=== PATIENT | female | born 1990 | race Caucasian/White ===

== ENCOUNTER 2020-06-30 07:09 | Outpatient (CLI) | payer OTHER, SELFPAY ==
[2020-06-30 08:48] LABS: Basophils Percent Auto 0.3 % (0.2-1.2); Eosinophils Percent Auto 0.5 % (0-4.4); Hemoglobin 11.6 g/dL (12.0-15.0); Immature Granulocyte Absolute 0.05 K/mm3 (0.00-0.031); Immature Granulocyte Percent A 0.6 % (0-0.5); Lymphocytes Percent Auto 15.2 % (18.3-44.2); Mean Corpuscular HGB Conc 32.2 g/dl (32-36); Mean Platelet Volume 10.2 fl (7.4-10.4); Monocytes Absolute Auto 0.5 K/mm3 (0.1-0.6); Monocytes Percent Auto 6.9 % (2.6-8.5); Neutrophils Percent Auto 76.5 % (45.5-73.1); Platelet Count Result 179 k/mm3 (150-375); Red Cell Distribution Width 12.8 % (11.5-14.5); White Blood Count 7.9 K/mm3 (4.5-10.0)
[2020-06-30 09:00] LABS: Glucose 1 Hour PP 50gm Dose 149 mg/dL
[2020-06-30 09:42] LABS: HIV 1/2 Ab P24 Ag Result Negative (Negative)
[2020-07-02 11:56] LABS: Rapid Plasma Reagin Non-Reactive (NonReactive)
== END 2020-06-30 07:10 | disposition home or self-care (01) ==
PROVIDERS: Visit Provider Advanced Practice Midwife
DX: Z36.9 Encounter for antenatal screening, unspecified (principal)
CPT/HCPCS: 36415; 82947; 85025; 86592; 86703; 86850; G0432

== ENCOUNTER 2020-07-05 07:10 | Outpatient (CLI) | payer OTHER, SELFPAY ==
[2020-07-05 08:04] LABS: Glucose Fasting Gestational 89 mg/dL (>/=95)
[2020-07-05 09:56] LABS: Glucose 1 Hour Gest 202 mg/dL (>/=180)
[2020-07-05 10:37] LABS: Glucose 2 Hour Gest 95 mg/dL (>/= 155)
[2020-07-05 12:16] LABS: Glucose 3 Hour Gest 63 mg/dL (>/=140)
== END 2020-07-05 07:11 | disposition home or self-care (01) ==
PROVIDERS: Visit Provider Advanced Practice Midwife
DX: O99.810 Abnormal glucose complicating pregnancy (principal); Z3A.00 Weeks of gestation of pregnancy not specified
CPT/HCPCS: 36415; 82951; 82952

== ENCOUNTER 2020-08-17 14:01 | Outpatient (CLI) | payer OTHER, SELFPAY ==
--- NOTE | ~2020-08-17 | US_ITS ---
EXAMINATION: US OB follow up DATE: 08/17/2020 14:56 INDICATION: growth assessment during third trimester TECHNIQUE: Real-time ultrasound of the pelvis was performed. The interpreting radiologist was not pre sent for the study. COMPARISON: None. FINDINGS: There is a single living fetus in vertex presentation. The placenta is anterior. The positi on of the placenta relative to the cervix is not demonstrated. cardiac activity and movem ent are noted. heart rate is 135 beats per minute (bpm). The amniotic fluid index is subjective ly normal. The following biometric data were obtained: Biparietal diameter (BPD): 8.6 cm; head circumference (HC): 32.2 cm; abdominal circumference (AC): 31 .2 cm; femur length (FL): 6.8 cm. These measurements are concordant. Estimated weight is 2623 g +/- 393 g, which correlates with the 79th percentile when 09/28/2020 is used as estimated date of delivery. As single measurements, these parameters are each equal to the following estimated gestational ages w ith ranges of +/- 2 standard deviations: BPD: 35 weeks 0 days +/- 3 weeks 1 days. HC: 36 weeks 3 days +/- 2 weeks 5 days. AC: 35 weeks 1 days +/- 3 weeks 0 days. FL: 35 weeks 0 days +/- 3 weeks 0 days. estimated gestational age based solely on measurements from this exam is 35 weeks 3 days +/- 2 weeks 3 days. IMPRESSION: 1. Single living fetus in vertex presentation. 2. Estimated weight is 2623 g +/- 393 g, which correlates with the 79th percentile when 09/28/19 21 is used as estimated date of delivery. Reviewed, dictated and finalized at location A. COMMUNITY MANAGER IMPRESSION: 1. Single living fetus in vertex presentation. 2. Estimated weight is 2623 g +/- 393 g, which correlates with the 79th p ercentile when 09/28/2020 is used as estimated date of delivery.
== END 2020-08-17 14:02 | disposition home or self-care (01) ==
PROVIDERS: Visit Provider Obstetrics & Gynecology
DX: O99.213 Obesity complicating pregnancy, third trimester (principal); Z36.89 Encounter for other specified antenatal screening; Z3A.35 35 weeks gestation of pregnancy
CPT/HCPCS: 76816

== ENCOUNTER 2021-04-29 07:09 | Outpatient (CLI) | payer OTHER, SELFPAY ==
--- NOTE | ~2021-04-29 | US_ITS ---
EXAMINATION: US abdomen limited DATE: 04/29/2021 08:39 INDICATION: Right upper quadrant abdominal pain. TECHNIQUE: Multiple grayscale and Doppler ultrasound images of the abdomen were obtained. COMPARISON: None FINDINGS: The pancreatic head and body are normal in appearance. The pancreatic tail is not visualized. Liver has normal contour, with a smooth surface. There is increased parenchymal echogenicity and coarsened echotexture consistent with diffuse hepatic steatosis. No liver lesion identified. No intrahepatic b iliary duct dilation suspected. Portal venous flow was seen in the hepatopetal, normal direction and has normal Doppler waveform. Multiple shadowing gallstones layering in the dependent aspect of the ot herwise normal-appearing gallbladder. Common bile duct measures 6 mm in maximal diameter which is at the upper limits of normal. Sonographic Diane sign was reported as negative by the pantry worker.Visua lized portion of the right kidney demonstrates normal contour, echogenicity and no hydronephrosis. Vi sualized portion of the proximal inferior vena cava is normal. IMPRESSION: 1. Cholelithiasis with borderline dilated common bile duct but 2. Diffuse hepatic steatosis. With no evident intrahepatic biliary ductal dilation. Correlate with li therese function tests. Reviewed, dictated and finalized at location B. IMPRESSION: 1. Cholelithiasis with borderline dilated common bile duct but 2. Diffuse hepatic steatosis. With no evident intrahepatic biliary ductal dilat ion. Correlate with liver function tests.
[2021-04-29 07:44] LABS: Basophils Absolute Auto 0.1 K/mm3 (0.0-0.1); Basophils Percent Auto 0.8 % (0.2-1.2); Eosinophils Absolute Auto 0.1 K/mm3 (0-0.3); Eosinophils Percent Auto 1.4 % (0-4.4); Hematocrit 38.5 % (37.0-47.0); Hemoglobin 12.1 g/dL (12.0-15.0); Immature Granulocyte Absolute 0.01 K/mm3 (0.00-0.031); Immature Granulocyte Percent A 0.2 % (0-0.5); Lymphocytes Absolute Auto 1.91 K/mm3 (0.9-3.2); Lymphocytes Percent Auto 32.4 % (18.3-44.2); Mean Corpuscular HGB Conc 31.4 g/dl (32-36); Mean Corpuscular Hemoglobin 25.6 pg (26-34); Mean Corpuscular Volume 81.6 fl (80-100); Monocytes Absolute Auto 0.7 K/mm3 (0.1-0.6); Monocytes Percent Auto 11.2 % (2.6-8.5); Neutrophils Absolute Auto 3.2 K/mm3 (1.3-6.7); Platelet Count Result 256 k/mm3 (150-375); Red Blood Count 4.72 M/mm3 (4.2-5.4); Red Cell Distribution Width 13.7 % (11.5-14.5); White Blood Count 5.9 K/mm3 (4.5-10.0)
[2021-04-29 07:53] LABS: Alanine Aminotransferase 40 U/L (4-35); Albumin Level 4.3 g/dL (3.5-5.1); Alkaline Phosphatase 100 U/L (38-126); Anion Gap 6 mmol/L (8-16); Aspartate Amino Transferase 32 U/L (14-36); Bilirubin,Total 0.5 mg/dL (0.2-1.3); Blood Urea Nitrogen 13 mg/dL (7-17); Calcium 9.3 mg/dL (8.4-10.2); Carbon Dioxide 26 mmol/L (22-30); Chloride 108 mmol/L (98-107); Estimated Glomerular Filt Rate > 60; Glucose 95 mg/dL (65-110); Sodium 140 mmol/L (137-145)
[2021-04-29 08:03] LABS: Hemoglobin A1C 5.5 % (<5.7)
== END 2021-04-29 07:10 | disposition home or self-care (01) ==
PROVIDERS: PCP Family Medicine; Visit Provider Family Medicine
DX: R10.11 Right upper quadrant pain (principal); R10.13 Epigastric pain; Z13.1 Encounter for screening for diabetes mellitus; R63.5 Abnormal weight gain
CPT/HCPCS: 36415; 76705; 80053; 83036; 84443; 85025

== ENCOUNTER 2021-05-10 08:01 | Outpatient (CLI) | payer OTHER, SELFPAY ==
[2021-05-10 08:43] LABS: Alanine Aminotransferase 40 U/L (4-35); Albumin Level 4.1 g/dL (3.5-5.1); Alkaline Phosphatase 92 U/L (38-126); Amylase 71 U/L (30-110); Aspartate Amino Transferase 35 U/L (14-36); Bilirubin,Total 0.5 mg/dL (0.2-1.3); Lipase 60 U/L (23-300)
== END 2021-05-10 08:02 | disposition home or self-care (01) ==
LOC: ANHSURGERY 08:05
PROVIDERS: PCP Family Medicine; Visit Provider Surgery
DX: Z01.812 Encounter for preprocedural laboratory examination (principal); K80.20 Calculus of gallbladder without cholecystitis without obstruction
CPT/HCPCS: 36415; 80076; 82150; 83690; 86850; 86900; 86901

== ENCOUNTER 2021-05-16 02:01 | Day surgery (SDC) | payer OTHER, SELFPAY ==
[2021-05-09 12:35] VITALS: BMI 46.2
[2021-05-16] VITALS (11 sets, daily range): BP systolic 105–140; BP diastolic 64–82; PULSE 60–95; RESP 14–20; TEMP 36.4–36.5; O2SAT 94–100; BMI 49.4
--- NOTE | ~2021-05-16 | XR_ITS ---
EXAMINATION: XR cholangiogram surg 1st inj DATE: 05/16/2021 10:53 INDICATION: Intraoperative cholangiogram, right upper quadrant pain TECHNIQUE: 82 fluoroscopic images of the right upper quadrant were obtained during intraoperative cho langiography performed by the surgeon. I was not present in the operating room. Fluoroscopy exposure time was 14.1. COMPARISON: None. FINDINGS: There is no intrahepatic or extrahepatic biliary dilatation. No biliary stones or stricture are identified. IMPRESSION: 1. Unremarkable intraoperative cholangiogram. These findings were communicated to Dr. Hunter in the operating room at 1038 hours on 05/16/2021. Reviewed, dictated and finalized at location B.
[2021-05-16] MEDS: LACTATED RINGERS 1,000 ML 30 ML IV CONT ×2 (08:10→11:16)
--- NOTE | 2021-05-16 08:15 | WPDANESEPPF ---
Anes - Initial Pre Proc Eval Procedure: Operation Date: 05/16/21 09:30 Proposed Procedures p Laparoscopic Cholecystectomy With Intraoperative Cholangiograms, Possible Open - Derek Hunter DO Date/Time: 05/16/21 08:15 Surgeon: Deerk Hunter DO Pre Op Diagnosis: Symptomatic Cholelithiasis Patient Data Age: 31 Gender: F Height: 1.83 m Weight: 165.4 kg Allergies Allergy/AdvReac Type Severity Reaction Status Date / Time No Known Allergies Allergy Unknown Verified 05/16/21 07:53 Home Medications Medication Instructions Recorded Confirmed Type fluticasone propionate [Flonase 1 spray NASAL DAILY #15.8 ml 08/11/19 05/16/21 Rx Allergy Relief] bupropion HCl 150 mg 24 hr tablet, 150 mg PO QAM 04/26/21 05/16/21 History extended release Patient hx anesthesia problems: none Family hx anesthesia problems: none [facility] Past Medical History Medical History Kidney stones Surgical History Surgical History H/O foot surgery History of gastric surgery gastric sleeve Family History Family History Father Hypertension COPD (chronic obstructive pulmonary disease) Mother Depression Sibling Hypertension Social History Social History Social History: Smoking status: Never smoker Second hand tobacco smoke exposure: No Alcohol intake: never Substance use: never Substance use type: does not use Living arrangements: with family Gender identity (if verbalized by the patient): Female Sexual Orientation (if Verbalized by the Patient): Straight or Heterosexual Spiritual care concerns: No Anes - Eval Final PreProcedure Day of Procedure 05/16/21 08:15 Patient weight: morbidly obese Heart: regular rate and rhythm Lungs: clear to auscultation Airway: Mallampati scale class II Neurological: alert and oriented Last oral intake: >/= 8 hours ASA classification: III Emergent: no Anesthetic plan: proceed Anesthesia type and monitoring: general ETT and standard monitoring Informed Consent: The patient's anesthetic plan and its attendant risks and benefits were discussed with the patient/family/POA. Questions were solicited and answers provided to the satisfaction of the patient/family/POA.
[2021-05-16] MEDS: ACETAMINOPHEN 500 MG TABLET 1000 MG PO (08:27)
[2021-05-16] MEDS: KETOROLAC 15 MG/ML VIAL (*BKC) IV PUSH (08:29)
--- NOTE | 2021-05-16 09:24 | WPDHPUPDATE1 ---
History and Physical Update Update Date/Time: 05/16/21 09:24 History and Physical has been reviewed, including an updated exam of the patient. There are NO changes in the patient's condition. Risks, benefits, and alternatives have been discussed and questions answered. Patient agrees to proceed with procedure.
[2021-05-16] MEDS: ceFAZolin 3 GM/D5W 100 ML 100 ML IVPB (09:45)
[2021-05-16] MEDS: BUPIVACAINE HCL 0.5% PF 30 ML VIAL INFILTRATE (10:22)
--- NOTE | 2021-05-16 11:14 | W.PM.PROC2 ---
Procedure Note - Detailed Date of Procedure 05/16/21 Pre-op Diagnosis Symptomatic Cholelithiasis, elevated LFT's Post-op Diagnosis same Procedure Performed Laparoscopic cholecystectomy with intraoperative cholangiogram Surgeon Derek Hunter, DO Anesthesia general and local (0.5% bupivacaine) Indications This is a 31-year-old woman who presented with epigastric abdominal pain over the past month. She also had an episode of chris-colored stools. Imaging showed evidence of cholelithiasis with borderline dilated common bile duct at 6 mm. Her liver enzymes were essentially normal except for her ALT was slightly elevated. She does also have findings of hepatic steatosis on the ultrasound. Discussions were made with the patient about treatment options and decision was made to proceed with laparoscopic cholecystectomy with intraoperative cholangiogram, possible open. Findings Laparoscopic cholecystectomy with cholangiogram was performed. The gallbladder was slightly dilated but did not appear acutely inflamed. There were no pericholecystic adhesions. There were many small to medium-sized stones within the gallbladder and near the entrance to the cystic duct. A small tear was made in the neck of the gallbladder as I was dissecting and several small stones spilled out, but I was able to retrieve these using a laparoscopic scoop. After visualizing the critical view of safety, I then performed an intraoperative cholangiogram using Omnipaque contrast. There were no signs of common bile duct occlusion or filling defects. The images were sent to Radiology for interpretation. The gallbladder was then removed and sent to the lab for pathology. Description of Procedure Procedure as well as risks, benefits, and alternatives were discussed with patient. Written consent was obtained and placed in chart prior to procedure. The patient was brought back to surgical suite. Patient was placed in supine position on operating table. Time-out was done to confirm patient and procedure. Patient was then intubated by the anesthesia department. Abdomen was prepped and draped in sterile fashion using chlorhexidine prep. 0.5% bupivacaine with epinephrine was infiltrated at each site of incision. A 5 millimeter incision was made near the umbilicus, and a 5 millimeter Optiview trocar was advanced through the abdominal layers under direct visualization. Once inside the abdominal cavity, carbon dioxide was insufflated to create a pneumoperitoneum. The camera was inserted and the abdomen was inspected. No immediate abnormalities were identified. The patient was placed in reverse Trendelenburg position and rotated slightly to the left. An 11 millimeter incision was made in the subxiphoid region, and an 11 millimeter trocar was inserted under direct visualization. Two 5 millimeter incisions were made in the right upper quadrant, and two 5 millimeter trocars were inserted under direct visualization. The gallbladder was identified and grasped at the fundus and retracted superiorly. It was then grasped at the infundibulum retracted laterally. Careful dissection around the neck of the gallbladder was performed using blunt dissection with a [place] grasper and hook electrocautery. The cystic duct was identified, and a window was created behind it. The cystic artery was also identified and a window was created behind it. The critical view of safety was identified, visualizing the cystic duct running directly into the neck of the gallbladder, and the cystic artery running directly into the wall of the gallbladder. A 5 millimeter clip fingerprinter was then used to place 2 clips proximally and 1 clip distally on the cystic artery. It was then transected using endoscopic scissors. The Hendrickson clamp was then placed across the distal neck of the gallbladder and the Hendrickson cholangiocatheter was then advanced into the cystic duct. The catheter flushed with ease. The patient was then flattened out
== END 2021-05-16 13:14 | disposition home or self-care (01) ==
PROVIDERS: PCP Family Medicine; Visit Provider Surgery
PROC: 0FT44ZZ Resection of Gallbladder, Percutaneous Endoscopic Approach (ICD-10-PCS; CPT 47562; principal; 2021-05-16 09:30)
DX: K80.10 Calculus of gallbladder with chronic cholecystitis without obstruction (principal); Z98.84 Bariatric surgery status; E66.01 Morbid (severe) obesity due to excess calories; Z68.42 Body mass index [BMI] 45.0-49.9, adult
CPT/HCPCS: 47563; 74300; 88304; A9270; J0690; J1100; J1885; J2250; J2405; J2704; J2710; J3010; J7030; J7120; Q9966

== ENCOUNTER 2021-07-02 13:18 | Outpatient (CLI) | payer OTHER, SELFPAY | END 2021-07-02 13:19 | disposition home or self-care (01) | LOC: ANHLAB 13:19 | PROVIDERS: PCP Physician Assistant; Visit Provider Physician Assistant | DX: J02.9 Acute pharyngitis, unspecified (principal) | CPT/HCPCS: 87070 ==

== ENCOUNTER 2021-08-07 16:33 | Emergency (ER) | payer OTHER, SELFPAY ==
--- NOTE | 2021-08-07 16:44 | ED.URI ---
HPI - URI/Sore Throat General Chief Complaint: Upper Respiratory Infection Stated Complaint: congestion,cough Time Seen by Provider: 08/07/21 16:43 Source: patient and RN notes reviewed History of Present Illness HPI Narrative: Patient is a 31-year-old female who presents the urgent care with complaints of cough and congestion. Patient states she has had a lot of sinus drainage running down the back of her throat. Denies any fever, chills, nausea, vomiting. Patient states that she takes a daily Zyrtec. Reports of symptoms starting 5 days ago. 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 No other acute complaints. Denies of any exposures to Covid/flu/strep. Patient has been Covid vaccinated. No other acute complaints. No acute distress noted. Patient read the plan of care. Some parts of this dictation were generated by voice recognition software and may contain typographical and/or grammatical inaccuracies. Related Data Home Medications Medication Instructions Recorded Confirmed bupropion HCl 150 mg 24 hr tablet, 150 mg PO QAM 04/26/21 07/08/21 extended release cetirizine 10 mg tablet 10 mg PO DAILY 06/27/21 08/07/21 Allergies Allergy/AdvReac Type Severity Reaction Status Date / Time No Known Allergies Allergy Unknown Verified 08/07/21 16:47 Review of Systems Review of Systems: CONSTITUTIONAL: Denies fever, chills, or sweats. EYES: Denies visual changes, redness, or discharge. ENT: Reports rhinorrhea, postnasal drainage, sinus congestion/pressure CARDIOVASCULAR: Denies chest pain, palpitations, or edema. RESPIRATORY: Denies cough or dyspnea. GASTROINTESTINAL: Denies abdominal pain, nausea, vomiting, or diarrhea. GENITOURINARY: Denies dysuria or hematuria. SKIN: Denies rash or itching. MUSCULOSKELETAL: Denies back pain, joint pain, or myalgia. NEUROLOGIC: Denies headache, numbness, or weakness. All other systems reviewed are negative, except as documented in HPI. [facility] Past Medical History Medical History Allergies Anxiety Irritable bowel Kidney stones Surgical History Surgical History H/O foot surgery History of gastric surgery gastric sleeve Hx laparoscopic cholecystectomy with IOC 05/16/21 Family History Family History Father Hypertension COPD (chronic obstructive pulmonary disease) Mother Depression Thyroid disorder Sibling Hypertension Social History Social History Social History: Smoking status: Never smoker Second hand tobacco smoke exposure: No Alcohol intake: never Substance use: never Substance use type: does not use Gender identity (if verbalized by the patient): Female Sexual Orientation (if Verbalized by the Patient): Straight or Heterosexual Spiritual care concerns: No Comments At the time of my signature, I reviewed and agree with the nursing past medical, surgical, social, and family history. There is no relevant family history pertinent to the patient complaint. Exam Narrative: GENERAL: This is a well-nourished, well-developed patient, in no apparent distress. HEAD: normocephalic, atraumatic. EYES: PERRL. Sclera clear/white. Vision is grossly intact. EARS: External ears normal, auditory canals clear and without drainage, TMs normal without perforation. Hearing grossly intact. NOSE: External nose normal with no obvious nasal discharge, nares without redness, no rhinorrhea. THROAT: Mucous membranes moist, posterior pharynx clear. Moderate postnasal drainage NECK: Neck supple CARDIOVASCULAR: Regular rate and rhythm without murmurs, gallops, or rubs. RESPIRATORY: Clear to auscultation. Breath sounds equal bilaterally. No wheezes, rales, or rhonchi. GASTROINTESTINAL: Abdomen soft, non-tender, nondistended.
[2021-08-07 16:47] VITALS: BP 136/85; PULSE 105; RESP 18; TEMP 36.9; O2SAT 100
[2021-08-07 16:48] VITALS: BP 136/85; PULSE 105; RESP 18; TEMP 36.9; O2SAT 100
== END 2021-08-07 17:13 | disposition home or self-care (01) ==
PROVIDERS: Emergency Provider Nurse Practitioner Family; PCP Physician Assistant
DX: J32.9 Chronic sinusitis, unspecified (principal); Z20.822 Contact with and (suspected) exposure to COVID-19
CPT/HCPCS: 87426; 99213; C9803; G0463

== ENCOUNTER 2021-10-16 15:16 | Emergency (ER) | payer OTHER, SELFPAY ==
[2021-10-16 15:51] VITALS: BP 135/78; PULSE 99; RESP 18; TEMP 36.9; O2SAT 99
--- NOTE | 2021-10-16 15:55 | ED.LOWEXIN ---
HPI - Extremity Injury (Lower) General Chief Complaint: Extremity Injury, Lower Stated Complaint: lt ankle injury Time Seen by Provider: 10/16/21 15:45 Source: patient and RN notes reviewed Mode of arrival: ambulatory Limitations: no limitations History of Present Illness HPI Narrative: 31-year-old female presents to the [facility] with complaints of left lateral ankle pain since this morning. Patient presents from outpatient x-ray with a fracture. Patient reports that she was walking to her car this morning when she slipped and landed underneath her car. Developed left ankle pain and swelling. Patient denies back pain, head pain, neck pain. Denies hitting head. No loss of consciousness. Has been walking all day on it but with the increased pain and swelling and bruising called her primary care doctor, they sent over a request for an x-ray. Patient now being seen for splinting Related Data Home Medications Medication Instructions Recorded Confirmed cetirizine 10 mg tablet 10 mg PO DAILY 06/27/21 10/16/21 bupropion HCl 150 mg 24 hr tablet, 300 mg PO QAM tablet 08/22/21 10/16/21 extended release Allergies Allergy/AdvReac Type Severity Reaction Status Date / Time No Known Allergies Allergy Unknown Verified 10/16/21 15:55 Review of Systems Review of Systems: All systems reviewed & are unremarkable except as noted in HPI and below Constitutional: Constitutional: Reports no additional constitutional complaints Eyes: Eyes: Reports no additional eye complaints ENT: Reports system reviewed and no additional complaints, except as documented Cardiovascular: Cardiovascular: Reports no additional cardiovascular complaints Respiratory: Respiratory: Reports no additional respiratory complaints Gastrointestinal: Gastrointestinal: Reports no additional gastrointestinal complaints Musculoskeletal: Musculoskeletal: Reports as per HPI, Reports arthralgias and Reports joint swelling (Left lateral ankle ) Comments: Left lateral ankle swelling bruising Integumentary/Breasts: Skin/Breast: Reports system reviewed and no additional complaints, except as docu Neurologic: Reports system reviewed and no additional complaints, except as documented Psychiatric: Psychiatric: Reports no additional psychiatric complaints Allergic/Immunologic: Allergic/Immunologic: Reports no additional allergic/immunologic complaints PMFSH Past Medical History Medical History Allergies Anxiety Irritable bowel Kidney stones Surgical History Surgical History H/O foot surgery History of gastric surgery gastric sleeve Hx laparoscopic cholecystectomy with IOC 05/16/21 Family History Family History Father Hypertension COPD (chronic obstructive pulmonary disease) Mother Depression Thyroid disorder Sibling Hypertension Social History Social History Social History: Smoking status: Never smoker Second hand tobacco smoke exposure: No Alcohol intake: never Substance use: never Substance use type: does not use Gender identity (if verbalized by the patient): Female Sexual Orientation (if Verbalized by the Patient): Straight or Heterosexual Spiritual care concerns: No Comments At the time of my signature, I reviewed and agree with the nursing past medical, surgical, social, and family history. There is no relevant family history pertinent to the patient complaint. Exam Const: General: healthy appearing, no acute distress and alert Nutritional Appearance: well nourished and obese Orientation/consciousness: patient oriented x3 Limitations: no limitations HENMT: Head: normal to inspection Eyes: Pupils: Equal, round and reactive pupils present Neck: Neck: normal visual inspection, no lymphadenopathy and no meni
== END 2021-10-16 16:32 | disposition home or self-care (01) ==
PROVIDERS: Emergency Provider Nurse Practitioner; PCP Physician Assistant
DX: S82.62XA Displaced fracture of lateral malleolus of left fibula, initial encounter for closed fracture (principal); W01.0XXA Fall on same level from slipping, tripping and stumbling without subsequent striking against object, initial encounter; F41.9 Anxiety disorder, unspecified; Z98.84 Bariatric surgery status
CPT/HCPCS: 29515; 99214; G0463

== ENCOUNTER → 2021-10-16 15:22 | Outpatient (CLI) | payer OTHER, SELFPAY ==
--- NOTE | ~2021-10-16 | XR_ITS ---
XR foot LT min 3V DATE: 10/16/2021 15:36 INDICATION: Left foot pain TECHNIQUE: 4 views COMPARISON: None FINDINGS: There is a lag screw extending from the posterior calcaneus into the anterior dome of the t alus. Linear oblique minimally displaced fracture of the lateral malleolus is again noted. No fracture or dislocation, periosteal reaction or bone destruction of the left foot. Hypertrophic changes are noted dorsally at the talonavicular area. IMPRESSION: Status post talocalcaneal surgical fusion Lateral malleolar fracture Reviewed, dictated and finalized at location A. OISOTOPE TECHNOLOGIST
--- NOTE | ~2021-10-16 | XR_ITS ---
XR ankle LT min 3V DATE: 10/16/2021 15:36 INDICATION: Left ankle and foot pain TECHNIQUE: 4 views of left ankle COMPARISON: None FINDINGS: There is a linear oblique fracture of the lateral malleolus with approximately one cortical width lateral and posterior displacement, no significant angulation. The distal tibia appears intact. No evidence of fracture of the medial or posterior malleoli. A lag screw extends posterior anteriorly through the calcaneus into the anterior talar dome. IMPRESSION: Minimally displaced linear oblique fracture of the lateral malleolus Reviewed, dictated and finalized at location A. ROAD SIGNAL TECHNICIAN IMPRESSION: Minimally displaced linear oblique fracture of the lateral malleolu s
== END ==
PROVIDERS: PCP Physician Assistant; Visit Provider Physician Assistant
DX: S82.62XA Displaced fracture of lateral malleolus of left fibula, initial encounter for closed fracture (principal); X58.XXXA Exposure to other specified factors, initial encounter
CPT/HCPCS: 73610; 73630

== ENCOUNTER 2021-12-30 09:53 | Outpatient (CLI) | payer OTHER, SELFPAY ==
--- NOTE | ~2021-12-30 | CT_ITS ---
EXAMINATION: CT sinus wo con DATE: 12/30/2021 10:09 INDICATION: Postnasal drip. Chronic sinusitis. TECHNIQUE: Computed tomography (CT) of the paranasal sinuses was performed without contrast. Iterativ e reconstruction technique was employed. Exam dose: 294.13 mGy-cm total exam DLP. COMPARISON: None FINDINGS: There is minimal leftward bowing of the nasal septum. Intralamellar cell of right middle nasal turbinate. Asymmetric soft tissue swelling of the right midd le and inferior nasal turbinates. Approximately 3 x 5 mm mucus retention cyst or polyp along the upper medial wall of the left maxillar y sinus, situated at the region of the left maxillary sinus with soft tissue thickening at the lower portion of the left infundibulum.. There is soft tissue the at the right maxillary ostium and lower right infundibulum as well. Slight posterior mucoperiosteal thickening of the maxillary sinuses. The paranasal sinuses and mastoid air cells otherwise are normally developed and aerated. IMPRESSION: Minimal leftward bowing of nasal septum Intralamellar cell of right middle nasal turbinate Asymmetric soft tissue swelling of right nasal turbinates Soft tissue thickening at each maxillary ostium and lower infundibulum, minimal mucoperiosteal thicke ricardo of maxillary sinuses Reviewed, dictated and finalized at Location A. Reviewed, dictated and finalized at location A. IMPRESSION: Minimal leftward bowing of nasal septum Intralamellar cell of right middle nasal turbinate Asymmetric soft tissue swelling of right nasal turbinates Soft tissue thickening at each maxillary ostium and lower infundibulum, minimal mucoperiosteal thickening of maxillary sinuses
== END 2021-12-30 09:54 | disposition home or self-care (01) ==
LOC: ANHIMG 09:56
PROVIDERS: PCP Physician Assistant; Visit Provider Otolaryngology
DX: R09.82 Postnasal drip (principal); R51.9 Headache, unspecified; R44.8 Other symptoms and signs involving general sensations and perceptions; J32.9 Chronic sinusitis, unspecified
CPT/HCPCS: 70486

== ENCOUNTER 2021-12-31 09:13 | Outpatient (CLI) | payer OTHER, SELFPAY ==
--- NOTE | ~2021-12-31 | XR_ITS ---
XR abdomen/kub 1V DATE: 12/31/2021 09:30 INDICATION: Constipation, bloating TECHNIQUE: AP projection, 2 views COMPARISON: None FINDINGS: Surgical clips, right upper quadrant, probably due to cholecystectomy. An IUD overlies the mid pelvic area. There is no evidence of bowel obstruction or unusual amount of fecal material in the colon. The psoas shadows are intact. No visceromegaly or abnormal calcification is noted. Included skeletal structures are unremarkable. IMPRESSION: Status post cholecystectomy IUD No evidence of bowel obstruction or constipation Reviewed, dictated and finalized at Location A. Reviewed, dictated and finalized at location A.
== END 2021-12-31 09:14 | disposition home or self-care (01) ==
LOC: ANHIMG 09:16
PROVIDERS: PCP Family Medicine; Visit Provider Family Medicine
DX: R10.9 Unspecified abdominal pain (principal); Z90.49 Acquired absence of other specified parts of digestive tract; Z97.5 Presence of (intrauterine) contraceptive device
CPT/HCPCS: 74018

== ENCOUNTER 2022-01-02 07:05 | Outpatient (CLI) | payer OTHER, SELFPAY ==
[2022-01-02 07:28] LABS: Hematocrit 37.8 % (37.0-47.0); Hemoglobin 11.7 g/dL (12.0-15.0); Mean Corpuscular Hemoglobin 26.1 pg (26-34); Mean Corpuscular Volume 84.4 fl (80-100); Mean Platelet Volume 10.1 fl (7.4-10.4); Platelet Count Result 276 k/mm3 (150-375); Red Blood Count 4.48 M/mm3 (4.2-5.4); Red Cell Distribution Width 13.2 % (11.5-14.5); White Blood Count 7.5 K/mm3 (4.5-10.0)
[2022-01-02 07:40] LABS: Alanine Aminotransferase 47 U/L (4-35); Albumin Level 4.5 g/dL (3.5-5.1); Alkaline Phosphatase 110 U/L (38-126); Amylase 81 U/L (30-110); Anion Gap 5 mmol/L (8-16); Aspartate Amino Transferase 43 U/L (14-36); Bilirubin,Total 0.5 mg/dL (0.2-1.3); Blood Urea Nitrogen 16 mg/dL (7-17); Carbon Dioxide 28 mmol/L (22-30); Chloride 104 mmol/L (98-107); Cholesterol 197 mg/dL (0-200); Estimated Glomerular Filt Rate > 60; Glucose 96 mg/dL (65-110); HDL Direct 67 mg/dL; Lipase 81 U/L (23-300); Potassium 4.6 mmol/L (3.4-5.0); Sodium 137 mmol/L (137-145); Triglycerides 95 mg/dL (<150)
[2022-01-02 07:52] LABS: LDL Cholesterol Direct 94 mg/dL
[2022-01-02 08:29] LABS: Iron 57 ug/dL (37-170)
[2022-01-02 08:39] LABS: Percent Iron Saturation 11 % (20-50)
[2022-01-02 08:44] LABS: Folic Acid 4.5 ng/mL (2.76->20)
[2022-01-02 20:36] LABS: Hepatitis B Surface Antigen Negative (Negative)
[2022-01-02 20:41] LABS: HAV RESULT Negative (Negative); Hepatitis B Core IgM Result Negative (Negative)
[2022-01-02 20:53] LABS: Hepatitis C Virus Antibody Negative (Negative)
== END 2022-01-02 07:06 | disposition home or self-care (01) ==
PROVIDERS: PCP Family Medicine; Visit Provider Family Medicine
DX: R10.9 Unspecified abdominal pain (principal); Z90.3 Acquired absence of stomach [part of]; Z13.220 Encounter for screening for lipoid disorders; K59.00 Constipation, unspecified; R94.5 Abnormal results of liver function studies
CPT/HCPCS: 36415; 80053; 80061; 80074; 82150; 82607; 82746; 83540; 83550; 83690; 84443; 85027

== ENCOUNTER 2022-01-09 16:27 | Outpatient (CLI) | payer OTHER, SELFPAY ==
--- NOTE | ~2022-01-09 | US_ITS ---
EXAMINATION: US pelvic complete w TV DATE: 01/09/2022 17:19 INDICATION: Abnormal uterine bleeding TECHNIQUE: Multiple transabdominal and endovaginal sonographic images of the pelvis were obtained. COMPARISON: None. FINDINGS: The uterus measures 8.5 x 4.6 x 4.9 cm. The endometrial complex measures 11 mm. An IUD appe ars to be in expected position. The right ovary measures 2.5 x 2.1 x 2.4 cm. The left ovary measures 3.7 x 2.2 x 2.0 cm. There is normal vascular flow in the ovaries. There is no free fluid in the pelvi s. IMPRESSION: 1. No sonographic correlate for the patient's symptoms. Reviewed, dictated and finalized at location B.
== END 2022-01-09 16:28 | disposition home or self-care (01) ==
PROVIDERS: PCP Family Medicine; Visit Provider Advanced Practice Midwife
DX: N93.9 Abnormal uterine and vaginal bleeding, unspecified (principal)
CPT/HCPCS: 76830; 76856

== ENCOUNTER 2022-01-17 00:59 | Day surgery (SDC) | payer OTHER, SELFPAY ==
[2022-01-14 09:54] VITALS: BMI 43.4
--- NOTE | 2022-01-14 10:00 | SUR.PREOP ---
Report to the Outpatient Waiting Room, entrance under the green pavilion located off [facility], at time 11:00 on date 01/17/22. OR Time: 1300. - You and your visitor will be asked a series of questions to screen for COVID 19 for your protection. - Only one visitor is allowed at this time. - The patient visitor is requested to leave or wait in car when not with patient. - A mask is required within the hospital. Patients may have clear liquids (water, carbonated beverages, clear teas, apple juice) until 3 hours prior to surgery with a maximum of 20 ounces. - No food from midnight until time of surgery BEFORE 10:00 am - Infants may have breast milk until 4 hours before surgery, infant formula 6 hours prior to surgery. - Children will be allowed to drink immediately following surgery. If applicable, please bring a bottle or sippy cup to assist with drinking. Juice, water, soda, and popsicles are readily available. For infants on formula, please bring formula the day of surgery. Pacifiers are allowed. Take the following medications with a SIP of water the morning of surgery: __Wellbutrin and Cymbalta__ Medications to discontinue per physician ___iron and calcium Date to take last dose Please no make-up, nail french, hairspray, perfume, deodorant, or body powder the day of surgery. No jewelry (including any body piercings) or valuables the day of surgery, leave them at home. Please take a shower or bath the night before, or the morning of, surgery with an antibacterial soap. Wear comfortable, loose fitting clothing. Children are encouraged to wear pajamas. - Jewelry must be removed prior to entering the operating room. Rings and piercings that are not removed may be cut off. - The hospital will not accept responsibility for valuables. - Please leave all valuables, including medications, at home the day of surgery. If you are going home after surgery, a licensed pile driver must drive you home. - NO public transportation without another adult. - We recommend that an adult stay with you for 24 hours following discharge. - We also recommend that you do not drive, make important decision, drink alcoholic beverages, or take any drugs that were not prescribed by your health care provider for at least 24 hours after your discharge time. For Pediatric surgeries, we recommend two adults accompany the child home (only one inside the building at this time). Follow any additional instructions given to you from your surgeon. If you or anyone in your household have experienced Covid symptoms in the past week, please notify your surgeon or the nurse liaison at the phone number below for possible testing. Telephone instructions given to _patient____and asked if any additional questions and then verbalized understanding. Patient advised to call surgeon office or pre surgery nurse liaison [phone] if any additional questions.
--- NOTE | 2022-01-16 16:22 | PM.IMHP ---
H&P: HPI History of Present Illness Date/Time: 01/16/22 16:22 Chief Complaint: chronic sinusitis septal deviation facial pain facial pressure postnasal drainage nasal obstruction nasal congestion turbinate hypertrophy Narrative: patient presents for planned surgical procedure no change in symptoms no change in history Review of Systems Constitutional: Constitutional: Denies fatigue, Denies fever(s) and Denies lethargy Eyes: Eyes: Denies blurry vision and Denies change in vision ENT: Reports as per HPI Cardiovascular: Cardiovascular: Denies chest pain Respiratory: Respiratory: Denies cough Endocrine: Endocrine: Denies fatigue Hematologic/Lymphatic: Hematologic/Lymphatic: Denies easy bleeding, Denies easy bruising and Denies lymphadenopathy Allergic/Immunologic: Allergic/Immunologic: Denies seasonal rhinorrhea COUNT INCLUDES THE [facility] Past Medical History Medical History Allergies Anxiety Irritable bowel Kidney stones Surgical History Surgical History H/O foot surgery History of gastric surgery gastric sleeve Hx laparoscopic cholecystectomy with IOC 05/16/21 Family History Family History Father Hypertension COPD (chronic obstructive pulmonary disease) Mother Depression Thyroid disorder Sibling Hypertension Social History Social History Social History: Smoking status: Never smoker Second hand tobacco smoke exposure: No Alcohol intake: never Substance use: never Substance use type: does not use 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 [employer] Gender identity (if verbalized by the patient): Female Sexual Orientation (if Verbalized by the Patient): Straight or Heterosexual Spiritual care concerns: No Meds Home Medications and Allergies Home Medications Medication Instructions Recorded Confirmed Type bupropion HCl 150 mg 24 hr tablet, 300 mg PO QAM tablet 08/22/21 01/14/22 History extended release pantoprazole 40 mg tablet,delayed 40 mg PO QAM #90 tablet 12/23/21 01/14/22 Rx release calcium carb-vit D2-minerals 1 tablet PO DAILY 01/14/22 01/14/22 History [Calcium Citrate +] duloxetine 20 mg PO BID 01/14/22 01/14/22 History fexofenadine-pseudoephedrine 1 tablet PO QAM 01/14/22 01/14/22 History [Marisol-D 24 Hour] iron fum, poly #1-vitC-L.casei 1 cap PO DAILY 01/14/22 01/14/22 History [Fusion] Allergies Allergy/AdvReac Type Severity Reaction Status Date / Time NSAIDS (Non-Steroidal AdvReac Gastrointestinal Verified 01/14/22 09:42 Anti-Inflamma Upset Exam Const: General: cooperative, healthy appearing, comfortable, well developed and alert HENMT: Head: normal to inspection, normocephalic and atraumatic Ears: hearing grossly normal bilaterally, external ears normal, TM's normal bilaterally and EAC's normal General nose exam: Normal external nose present, Normal nares present, No nasal polyps present, mucous membranes and turbinates abnormal, abnormal septum and Other nasal findings present ( Septal deviation turbinate hypertrophy) Face and sinus: normal facial exam Mouth: Yes Normal oral and palatal mucosa present, Yes lip normal, Yes tongue normal, Yes oropharynx normal and Yes moist mucous membranes Teeth and gingiva: dentition normal and gingiva normal Throat: posterior oropharynx normal, tonsils normal and uvula midline Eyes: General: appearance normal, both eyes and all related structures Periorbital: periorbital findings normal Eyelids: eyelids normal Conjunctivae: conjunctivae normal Sclera: sclerae normal Neck: Neck: normal visual inspection, full ROM and no lymphadenopathy Thyroid: thyroid normal Lymphatic: no lymphadenopathy noted Resp: Effort & Inspection: normal respiratory effort
[2022-01-17] VITALS (9 sets, daily range): BP systolic 115–129; BP diastolic 62–78; PULSE 75–105; RESP 12–20; TEMP 36.4–37.2; O2SAT 94–100; BMI 47.8
--- NOTE | 2022-01-17 07:14 | WPDHPUPDATE1 ---
History and Physical Update Update Date/Time: 01/17/22 07:14 History and Physical has been reviewed, including an updated exam of the patient. There are NO changes in the patient's condition. Risks, benefits, and alternatives have been discussed and questions answered. Patient agrees to proceed with procedure.
[2022-01-17] MEDS: ACETAMINOPHEN 500 MG TABLET 1000 MG PO ×2 (10:52→17:05)
[2022-01-17] MEDS: LACTATED RINGERS 1,000 ML 30 ML IV CONT ×2 (11:00→15:42)
--- NOTE | 2022-01-17 12:06 | WPDANESEPPF ---
Anes - Initial Pre Proc Eval Procedure: Operation Date: 01/17/22 12:00 Proposed Procedures p Image Guided Bilateral Maxillary Antrostomy, Anterior Ethmoidectomy, Resection Right Katarina Bullosa, Bilateral Inferior Turbinectomy with Outfracture - Aston Goldberg MD s Endoscopic Septoplasty - Aston Goldberg MD Date/Time: 01/17/22 12:06 Surgeon: Aston Goldberg MD Pre Op Diagnosis: Chronic Sinusitis Patient Data Age: 32 Gender: F Height: 1.83 m Weight: 160 kg Last Vital Signs Temp 37.2 C 01/17/22 10:49 Pulse 87 01/17/22 10:49 Resp 20 01/17/22 10:49 BP 115/73 01/17/22 10:49 Pulse Ox 98 01/17/22 10:49 Allergies Allergy/AdvReac Type Severity Reaction Status Date / Time NSAIDS (Non-Steroidal AdvReac Gastrointestinal Verified 01/17/22 10:31 Anti-Inflamma Upset Home Medications Medication Instructions Recorded Confirmed Type bupropion HCl 150 mg 24 hr tablet, 300 mg PO QAM tablet 08/22/21 01/17/22 History extended release pantoprazole 40 mg tablet,delayed 40 mg PO QAM #90 tablet 12/23/21 01/17/22 Rx release calcium carb-vit D2-minerals 1 tablet PO DAILY 01/14/22 01/17/22 History [Calcium Citrate +] duloxetine 20 mg PO BID 01/14/22 01/17/22 History fexofenadine-pseudoephedrine 1 tablet PO QAM 01/14/22 01/17/22 History [Marisol-D 24 Hour] iron fum, poly #1-vitC-L.casei 1 cap PO DAILY 01/14/22 01/17/22 History [Fusion] Patient hx anesthesia problems: none Family hx anesthesia problems: none Results Review: All pre-operative results and documents have been reviewed as part of the pre-operative evaluation. [facility] Past Medical History Medical History Allergies Anxiety Irritable bowel Kidney stones Surgical History Surgical History H/O foot surgery History of gastric surgery gastric sleeve Hx laparoscopic cholecystectomy with IOC 05/16/21 Family History Family History Father Hypertension COPD (chronic obstructive pulmonary disease) Mother Depression Thyroid disorder Sibling Hypertension Social History Social History Social History: Smoking status: Never smoker Second hand tobacco smoke exposure: No Alcohol intake: never Substance use: never Substance use type: does not use Living arrangements: with family 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 [employer] Gender identity (if verbalized by the patient): Female Sexual Orientation (if Verbalized by the Patient): Straight or Heterosexual Spiritual care concerns: No Anes - Eval Final PreProcedure Day of Procedure 01/17/22 12:06 Patient weight: obese Heart: regular rate and rhythm Lungs: clear to auscultation Airway: Mallampati scale class II Neurological: alert and oriented Last oral intake: >/= 8 hours ASA classification: III Emergent: no Anesthetic plan: proceed Anesthesia type and monitoring: general ETT and standard monitoring Results Review: All pre-operative results and documents have been reviewed as part of the pre-operative evaluation. Informed Consent: The patient's anesthetic plan and its attendant risks and benefits were discussed with the patient/family/POA. Questions were solicited and answers provided to the satisfaction of the patient/family/POA.
[2022-01-17] MEDS: ceFAZolin 3 GM/D5W 100 ML 100 ML IVPB (13:18)
[2022-01-17] MEDS: OXYMETAZOLINE HCL 0.05% NAS 15 ML BTL (*BKC) 1 SPRAY NASAL (13:32)
[2022-01-17] MEDS: MUPIROCIN 2% OINT 22 GM TUBE 1 APPLIC EACH NARE (15:15)
[2022-01-17] MEDS: LIDO 1%/EPINEPHRINE/PF 1:200,000 30 ML VIAL XX (15:26)
--- NOTE | 2022-01-17 15:56 | P.OP_ITS ---
Procedure Note - Detailed Date of Procedure 01/17/22 Pre-op Diagnosis Chronic Sinusitis, right franchesca bullosa, septal deviation, turbinate hypertrophy, nasal obstruction, nasal congestion Post-op Diagnosis Same Procedure Performed 1. Image guided bilateral endoscopic maxillary antrostomy 2. Bilateral image guided endoscopic anterior ethmoidectomy number foot 3 bilateral inferior turbinate submucosal resection with outfracture 4. Endoscopic assisted septoplasty 5. Resection right franchesca bullosa Surgeon Aston Goldberg MD Anesthesia General Indications See above Findings Severely leftward deviated septum perforation along that no concomitant perforation on the right side. Severe turbinate hypertrophy very osteitic thick bone throughout all the disease sinuses edematous tissues well. Significant amount of bleeding during the case compared to normal ESS about 100 cc Description of Procedure Patient identified consent verified. Patient brought operating room. Time-out performed. General anesthesia induced endotracheal tube secured. Patient prepped and draped image guided initiated Afrin-soaked pledgets placed allowed to sit for 5 minutes 2nd time-out performed. Afrin-soaked pledgets removed. 6 cc 1% lidocaine with 1 100,000 parts epinephrine injected deep to the submucoperichondrial put in the submucoperichondrial plane of the nasal septum inferior turbinates. Inferior turbinates reduced 2 mm turbinate blade submucosally outfractured the Wesley elevator. Chris incision made left-sided septum left nasal septal flap elevated with 7 Ukrainian suction. Osteotome utilized to cross the septum right-sided flap then elevated with 7 Ukrainian suction. Deviated nasal septum removed with combination of Emigdio forceps Douglas Oro forceps as well as osteotome. Left-sided tears noted none on the right. Septum closed with 3 interrupted 5 0 fast gut sutures. Maxillary antrostomies performed with image guidance double ball tip probe backbiter straight through cut and microdebrider. Anterior ethmoidectomy performed with Kerrison straight through cut micro debrider. The right franchesca was resected by infracturing the middle turbinate and removing the lateral aspect of bone with Emigdio forceps. Of note there was a severely obstructing Kimberli cell which are choir 30 degree scope and angled through cut to open. This was confirmed with image guidance. Total blood loss about 100 cc no pack was placed the bilateral middle meati eye. Lynn splints placed bilaterally sutured anteriorly using a 3-0 mattressed nylon suture. I performed all dictated portions. Again blood loss about 100 cc. No immediate complications. Care the patient turned over to Anesthesiology. Drains No Packing Yes Pathology None sent Complications No immediate complications Condition Stable Disposition PACU
[2022-01-17] MEDS: fentaNYL CITRATE INJ (*CRX) 100 MCG/2 ML VIAL 25 MCG IV PUSH ×8 (16:02→18:14)
[2022-01-17] MEDS: oxyCODONE HCL (*CRX) 5 MG TAB IR PO (17:23)
== END 2022-01-17 18:25 | disposition home or self-care (01) ==
PROVIDERS: PCP Family Medicine; Visit Provider Otolaryngology
PROC: (CPT 31256; principal; 2022-01-17 12:00)
PROC: (CPT 30520; 2022-01-17 12:00)
DX: J32.9 Chronic sinusitis, unspecified (principal); J34.2 Deviated nasal septum; J34.3 Hypertrophy of nasal turbinates; J34.89 Other specified disorders of nose and nasal sinuses; R09.81 Nasal congestion; R51.9 Headache, unspecified; R44.8 Other symptoms and signs involving general sensations and perceptions; F41.9 Anxiety disorder, unspecified; Z98.84 Bariatric surgery status; E66.9 Obesity, unspecified; Z68.42 Body mass index [BMI] 45.0-49.9, adult
CPT/HCPCS: 31256; 31254; 61782; 30520; 30140; 31240; A9270; J0330; J0690; J1100; J2250; J2370; J2405; J2704; J3010; J7120

== ENCOUNTER 2022-02-06 11:54 | Outpatient (CLI) | payer OTHER, SELFPAY ==
[2022-02-06 12:16] LABS: Basophils Absolute Auto 0.1 K/mm3 (0.0-0.1); Basophils Percent Auto 0.7 % (0.2-1.2); Eosinophils Absolute Auto 0.1 K/mm3 (0-0.3); Eosinophils Percent Auto 0.7 % (0-4.4); Hematocrit 35.3 % (37.0-47.0); Hemoglobin 11.1 g/dL (12.0-15.0); Immature Granulocyte Absolute 0.02 K/mm3 (0.00-0.031); Immature Granulocyte Percent A 0.2 % (0-0.5); Lymphocytes Absolute Auto 2.55 K/mm3 (0.9-3.2); Lymphocytes Percent Auto 28.6 % (18.3-44.2); Mean Corpuscular HGB Conc 31.4 g/dl (32-36); Mean Corpuscular Hemoglobin 26.2 pg (26-34); Mean Corpuscular Volume 83.3 fl (80-100); Mean Platelet Volume 9.8 fl (7.4-10.4); Monocytes Absolute Auto 0.9 K/mm3 (0.1-0.6); Monocytes Percent Auto 9.7 % (2.6-8.5); Neutrophils Absolute Auto 5.4 K/mm3 (1.3-6.7); Neutrophils Percent Auto 60.1 % (45.5-73.1); Platelet Count Result 351 k/mm3 (150-375); Red Blood Count 4.24 M/mm3 (4.2-5.4); Red Cell Distribution Width 14.4 % (11.5-14.5); White Blood Count 8.9 K/mm3 (4.5-10.0)
== END 2022-02-06 11:55 | disposition home or self-care (01) ==
LOC: ANHLAB 11:55
PROVIDERS: PCP Family Medicine; Visit Provider Family Medicine
DX: D64.9 Anemia, unspecified (principal)
CPT/HCPCS: 36415; 85025

== ENCOUNTER 2022-04-01 14:37 | Outpatient (CLI) | payer OTHER, SELFPAY ==
[2022-04-01 14:56] LABS: Basophils Absolute Auto 0.1 K/mm3 (0.0-0.1); Basophils Percent Auto 0.6 % (0.2-1.2); Eosinophils Absolute Auto 0.1 K/mm3 (0-0.3); Eosinophils Percent Auto 1.1 % (0-4.4); Hemoglobin 12.3 g/dL (12.0-15.0); Immature Granulocyte Absolute 0.03 K/mm3 (0.00-0.031); Immature Granulocyte Percent A 0.3 % (0-0.5); Lymphocytes Absolute Auto 2.42 K/mm3 (0.9-3.2); Lymphocytes Percent Auto 26.6 % (18.3-44.2); Mean Corpuscular HGB Conc 31.5 g/dl (32-36); Mean Corpuscular Hemoglobin 26.9 pg (26-34); Mean Corpuscular Volume 85.2 fl (80-100); Mean Platelet Volume 9.9 fl (7.4-10.4); Monocytes Absolute Auto 0.8 K/mm3 (0.1-0.6); Monocytes Percent Auto 8.9 % (2.6-8.5); Neutrophils Absolute Auto 5.7 K/mm3 (1.3-6.7); Neutrophils Percent Auto 62.5 % (45.5-73.1); Platelet Count Result 304 k/mm3 (150-375); Red Blood Count 4.58 M/mm3 (4.2-5.4); Red Cell Distribution Width 14.9 % (11.5-14.5); White Blood Count 9.1 K/mm3 (4.5-10.0)
[2022-04-01 15:52] LABS: Iron 66 ug/dL (37-170)
[2022-04-01 16:01] LABS: Percent Iron Saturation 13 % (20-50)
[2022-04-01 18:19] LABS: Folic Acid 5.4 ng/mL (2.76->20)
== END 2022-04-01 14:38 | disposition home or self-care (01) ==
LOC: ANHLAB 14:38
PROVIDERS: PCP Physician Assistant; Visit Provider Family Medicine
DX: D64.9 Anemia, unspecified (principal)
CPT/HCPCS: 36415; 82607; 82746; 83540; 83550; 85025

== ENCOUNTER 2022-11-03 09:40 | Emergency (ER) | payer OTHER, SELFPAY ==
--- NOTE | 2022-11-03 09:53 | ED.URI ---
HPI - URI/Sore Throat General Chief Complaint: Upper Respiratory Infection Stated Complaint: sorethroat,rt ear pain Time Seen by Provider: 11/03/22 09:53 Source: patient Mode of arrival: ambulatory Limitations: no limitations History of Present Illness HPI Narrative: Ria is a 32-year-old female patient presenting to the clinic today with complaints of sore throat and right ear pain times x2 days. She report no known fever or chills. No known exposure to anyone with COVID, flu, or strep. MD elicited complaint: cough, sore throat, nasal congestion and other (Right ear pain) Related Data Allergies Allergy/AdvReac Type Severity Reaction Status Date / Time NSAIDS (Non-Steroidal AdvReac Gastrointestinal Verified 11/03/22 10:00 Anti-Inflamma Upset Review of Systems Review of Systems: Pertinent positives per HPI. Patient denies any fever, chills, rash, headache, visual changes, dizziness, shortness of breath, chest pain, palpitations, nausea, vomiting, diarrhea, constipation, abdominal pain, or any urinary issues. [facility] Past Medical History Medical History Allergies Anxiety Irritable bowel Kidney stones Surgical History Surgical History H/O foot surgery History of gastric surgery gastric sleeve Hx laparoscopic cholecystectomy with IOC 05/16/21 Family History Family History Father Hypertension COPD (chronic obstructive pulmonary disease) Mother Depression Thyroid disorder Sibling Hypertension Social History Social History Social History: Smoking status: Never smoker Second hand tobacco smoke exposure: No Alcohol intake: never Substance use: never Substance use type: does not use Living arrangements: with family Occupation/Education: occupation 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 There is no relevant family history pertinent to the patient complaint. Exam Narrative: General: Well-developed, obese, in no apparent distress Head: Normocephalic, atraumatic Eyes: Pupils equally round and reactive to light bilaterally, EOM intact, sclera and conjunctive clear, no discharge, lids normal Ears: TMs intact, dull, bulging, ear canals clear, no drainage, grossly hearing normal. Nose: Nares patent, clear discharge, no inflammation, no sinus tenderness. Mouth: Oral pharynx without lesions or masses, good dentition, MMM. Oropharynx red with bilateral tonsillar enlargement Neck: Supple, trachea midline, enlargement of anterior cervical nodes, no thyroid masses or goiter palpable. Cardio: Regular rate and rhythm, s1 and s2 normal, no murmur appreciated. Resp: Clear to auscultation bilaterally, no rhonchi, rales, wheezing or rubs Course Course Emergency Course: Portions of this record may have been created with voice recognition software. Level of Care: Express Care Visit Vital Signs Vital signs: Vital Signs Temperature 37.2 C 11/03/22 10:00 Pulse Rate 104 H 11/03/22 10:00 Respiratory Rate 18 11/03/22 10:00 Blood Pressure 148/99 H 11/03/22 10:00 Pulse Oximetry 98 11/03/22 10:00 Oxygen Delivery Room Air 11/03/22 10:00 Temperature 37.2 C 11/03/22 10:01 Pulse Rate 104 H 11/03/22 10:01 Respiratory Rate 18 11/03/22 10:01 Blood Pressure 148/99 H 11/03/22 10:01 Pulse Oximetry 98 11/03/22 10:01 Oxygen Delivery Room Air 11/03/22 10:01 Vital signs reviewed [facility] - URI
[2022-11-03 10:00] VITALS: BP 148/99; PULSE 104; RESP 18; TEMP 37.2; O2SAT 98
[2022-11-03 10:01] VITALS: BP 148/99; PULSE 104; RESP 18; TEMP 37.2; O2SAT 98
== END 2022-11-03 10:17 | disposition home or self-care (01) ==
PROVIDERS: Emergency Provider Nurse Practitioner Family
DX: J02.0 Streptococcal pharyngitis (principal); Z98.84 Bariatric surgery status
CPT/HCPCS: 87880; 99213; G0463

== ENCOUNTER 2023-08-26 09:15 | Emergency (ER) | payer OTHER, SELFPAY ==
[2023-08-26 09:28] VITALS: BP 135/79; PULSE 107; RESP 20; TEMP 36.6; O2SAT 100
--- NOTE | 2023-08-26 09:40 | ED.URI ---
HPI - URI/Sore Throat General Chief Complaint: Upper Respiratory Infection Stated Complaint: Bodyaches/Chills Time Seen by Provider: 08/26/23 09:32 Source: patient and RN notes reviewed Mode of arrival: ambulatory Limitations: no limitations History of Present Illness HPI Narrative: Patient presents today complaining of 3 day history of chills, body aches, headache, cough, nasal congestion, sore throat. Denies fever or shortness of breath. She has tried Tylenol and NyQuil with mild relief. Currently rates her pain 4/10. States both for children and have all had similar symptoms within the last week, but have tested negative for any common testable illnesses. Related Data Home Medications Medication Instructions Recorded Confirmed bupropion HCl 150 mg 24 hr tablet, 150 mg PO DAILY 08/26/23 08/26/23 extended release duloxetine 20 mg capsule,delayed 20 mg PO DAILY 08/26/23 08/26/23 release Allergies Allergy/AdvReac Type Severity Reaction Status Date / Time NSAIDS (Non-Steroidal AdvReac Intermediate Gastrointestinal Verified 08/26/23 09:19 Anti-Inflamma Upset Review of Systems Review of Systems: CONSTITUTIONAL: Denies fever, or sweats.+ chills, body aches EYES: Denies visual changes, redness, or discharge. ENT: Denies rhinorrhea, or otalgia.+ congestion, sore throat CARDIOVASCULAR: Denies chest pain, palpitations, or edema. RESPIRATORY: Denies dyspnea.+ cough GASTROINTESTINAL: Denies abdominal pain, nausea, vomiting, or diarrhea. GENITOURINARY: Denies dysuria or hematuria. SKIN: Denies rash, itching, or wounds. MUSCULOSKELETAL: Denies back pain, joint pain, or myalgia. NEUROLOGIC: Denies numbness, tingling, or weakness.+ headache PSYCH: Denies depression or anxiety. [facility] Past Medical History Medical History Allergies Anxiety Irritable bowel Kidney stones Surgical History Surgical History H/O foot surgery History of gastric surgery gastric sleeve Hx laparoscopic cholecystectomy with IOC 05/16/21 Family History Family History Father Hypertension COPD (chronic obstructive pulmonary disease) Mother Depression Thyroid disorder Sibling Hypertension Social History Social History Social History: Smoking status: Never smoker Second hand tobacco smoke exposure: No Alcohol intake: never Substance use: never Substance use type: does not use Living arrangements: with family Occupation/Education: occupation 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 Please see nursing chart for further information. There is no relevant family history pertinent to the presenting complaint Exam Narrative: GENERAL: Mildly ill-appearing, well-nourished, and in no acute distress. HEAD: Normocephalic, atraumatic. EYES: EOMI. No redness or drainage. Conjunctivae normal. ENT: Mucous membranes pink and moist. Nares congested. No rhinorrhea. TMs normal bilaterally. Throat mildly erythematous without edema or exudate. Uvula midline. NECK: Normal AROM. Supple. Right posterior cervical chain lymphadenopathy CHEST: No respiratory distress. Clear to auscultation. HEART: Regular rate and rhythm. No murmur appreciated. EXTREMITIES: Normal range of motion. No edema. SKIN: Warm, dry, no rash. Capillary refill normal. Normal skin turgor. NEURO: No focal deficits. Alert and oriented x3. Gait steady.
== END 2023-08-26 09:54 | disposition home or self-care (01) ==
PROVIDERS: Emergency Provider Nurse Practitioner; PCP Physician Assistant
DX: B34.9 Viral infection, unspecified (principal); Z20.822 Contact with and (suspected) exposure to COVID-19; F41.9 Anxiety disorder, unspecified
CPT/HCPCS: 87081; 87426; 87804; 87880; 99213; C9803; G0463